=== PATIENT | male | born 1960 ===

== ENCOUNTER 2021-04-04 03:00 | Emergency (ER) | payer OTHER ==
[2021-04-04] MEDS: Ketorolac 30 MG/ML SDV IVPUSH ONE (03:25)
[2021-04-04] MEDS: Ondansetron 4 MG/2 ML SDV IVPUSH ONE (03:27)
[2021-04-04] MEDS: Sodium Chloride 0.9% 1,000 ML IV ONE (03:30)
[2021-04-04] MEDS: HYDROmorphone 2 MG/ML SDV IVPUSH ONE ×2 (04:08→05:43)
[2021-04-04] MEDS: Sodium Chloride 0.9% 500 ML IV SCH (05:46)
[2021-04-04] MEDS: Ondansetron 4 MG Tab.DIS ONE (06:36)
[2021-04-04] MEDS ORDERED: Acetaminophen/HYDROcodone 325-5 MG Tab ONE (07:00)
[2021-04-04] MEDS ORDERED: Ondansetron 4 MG Tab.DIS ONE (07:00)
--- NOTE | 2021-04-04 07:23 | ER ---
REASON FOR EMERGENCY ROOM VISIT: Left flank pain. HISTORY: This 60-year-old man was awakened around 2 a.m. with the sudden onset of left flank and left lower quadrant pain that was very severe. It tended to come somewhat in waves. He experienced nausea and vomited x2. He had not had any fever or chills. He has not had any urinary symptoms or diarrhea. He does have a history of kidney stones in the past. The first being over 20 years ago and that required removal by cystoscopy and a basket. The most recent episode just over 2 years ago, at which time the stone passed spontaneously. His symptoms at this time were virtually identical to that which he experienced on the first 2 episodes. PAST MEDICAL HISTORY: Significant for, 1. Hypertension. 2. Type 2 diabetes, diet controlled. 3. Ureterolithiasis as noted above. MEDICATIONS: He does take an SAMANTA inhibitor for hypertension. ALLERGIES: NONE TO MEDICATIONS. REVIEW OF SYSTEMS: Pertinent positives and negatives as listed in the HPI. PHYSICAL EXAMINATION: Reveals somewhat groggy man, but in no acute distress. He does appear to be somewhat uncomfortable. He is afebrile. Heart rate 74, blood pressure initially was 181/100. After he received Dilaudid, it came down to 153/100, respirations 16, O2 sats 98%. HEENT: No scleral icterus is noted. Oropharynx is normal. NECK: Supple. No adenopathy. CHEST: Clear to auscultation with good air exchange bilaterally. CARDIAC: Regular rate without murmur. ABDOMEN: Obese, nondistended, and soft. He has no tenderness to palpation. There is no rebound or guarding. No palpable masses. EXTREMITIES: Normal pulses. No edema. LABORATORY DATA: His CBC is normal with a white count of 6500 and hemoglobin 15.3. His platelet count is 170,000. CMP revealed normal electrolytes. His creatinine is 1.13 with an estimated GFR of greater than 60. His glucose is elevated at 223. Urinalysis is positive for occult blood. Micro is not back yet. EMERGENCY ROOM COURSE: Further emergency room course, on arrival, he did receive Toradol 30 mg IV x1. Approximately an hour later, he received 1 mg Dilaudid IV and an hour or 2 after that, he received a second dose of Dilaudid 1 mg IV. In addition, he did receive 1 dose of Zofran 4 mg IV. It should be noted that he had Flomax on hand from his previous episode. He took 1 of these already before coming into the emergency room. Altogether, he received 1.5 L of normal saline IV fluids and we went ahead and obtained a CT scan which showed that he has a 4 x 3 mm stone in the distal ureter just above the bladder with proximal hydronephrosis and some edema of that kidney. IMPRESSION: Left ureterolithiasis, recurrent. PLAN: His pain is much better managed now and he rates it at a 3 or 4 out of 10. His nausea has gone following the Zofran. I emphasized that he should drink plenty of liquids. He can go home and I gave him hydrocodone 5/325 dispensed #10, 1-2 every 4 hours p.r.n. I also gave him a second prescription for 10 more of these to be filled if he needs before he goes back to the [facility], where he resides. He is expected to go back in a day or 2. He prefers managing this at home and he is familiar with the routine including straining all urines, etc. All questions were answered. He understands and agrees with this plan. RC /[id number]
--- NOTE | 2021-04-04 08:41 | CT ---
Date of Service: 04/04/21 Clinical Data: flank pain UNENHANCED ABDOMEN AND PELVIC CT: Multislice acquisition through the abdomen and pelvis without IV or oral contrast was performed. No priors. There are atelectatic changes in the dependent portions of the dependent portions of both lungs and in both lung bases. The lung bases otherwise clear. The heart size is normal. Minimal coronary artery calcifications. There is diffuse fatty infiltration of the liver. No focal hepatic lesions. The gallbladder appears normal. No calcified gallstones. The spleen appears normal. The right and left adrenals appear normal. There are nonobstructive renal calculi bilaterally. There is a 4 x 3 x 10 mm left ureteral calculus located in the distal left ureter 2 cm proximal to the ureterovesical junction. There is hydronephrosis and hydroureter proximal to it consistent with obstruction. There is also perinephric fat stranding on the left. This is probably related to obstruction. Pyelonephritis should be considered. The kidneys and collecting systems are otherwise unremarkable. There is a small amount of fluid within the bladder. There is apparent diffuse bladder wall thickening. This is probably related to nondistention. Cystitis should at least be considered. The prostate is enlarged. There are multiple calcifications within the prostate consistent with chronic prostatitis. The appendix is not dilated. No evidence of appendicitis. There is a large amount of fluid and gas within the stomach. There is diverticulosis of the descending and sigmoid colon. No evidence of diverticulitis. No free air. No free fluid. No dilated loops of bowel. No adenopathy. No aortic aneurysm. There is a fat containing umbilical hernia. There are small bilateral fat- containing inguinal hernias. There is degenerative disk disease throughout the lower thoracic and lumbar spine. No other significant findings. IMPRESSION: Distal ureteral calculus on the left with obstruction. Other findings as discussed above. [id number] [facility]
== END 2021-04-04 07:16 | disposition home or self-care (01) ==
LOC: LB.ED 03:00 → EDBD 03:00 → LB.ED 07:16
DX: N13.2 Hydronephrosis with renal and ureteral calculous obstruction (principal); I10 Essential (primary) hypertension; E11.9 Type 2 diabetes mellitus without complications
CPT/HCPCS: 36415; 74176; 80053; 81003; 85025; 96374; 96375; 96376; 99284; 99284-25; A9270-GY; J1170; J1885; J2405; J7030; J7040